=== PATIENT | male | born 1965 | race Caucasian/White ===

== ENCOUNTER → 2024-03-10 07:12 | Outpatient (REF) | payer BC, SELFPAY ==
[2024-03-10 08:52] LABS: Hemoglobin 13.2 g/dL (13.0-18.0); Mean Corp Hgb Conc. 33.8 g/dL (33.0-37.0); Mean Corpuscular Hgb 31.9 pg (27.0-31.0); Mean Corpuscular Volume 94.2 fL (80.0-94.0); Mean Platelet Volume 10.3 fL (7.4-10.4); Platelet Count 150 10^3/uL (130-400); Red Blood Cell Count 4.14 10^6/uL (4.70-6.10); Red Cell Dist. Width 12.2 % (11.5-14.5); White Blood Cell Count 4.1 10^3/uL (4.8-10.8)
[2024-03-10 10:01] LABS: PSA, Total - Screen 1.92 ng/ml (0.0-4.0); TSH Reflex To Free T4 2.65 uIU/ml (0.47-4.68)
[2024-03-10 11:02] LABS: ALT (SGPT) 26 U/L (0-50); AST (SGOT) 46 U/L (17-59); Albumin 4.4 g/dl (3.5-5.0); Alkaline Phosphatase 73 U/L (38-126); Blood Urea Nitrogen 22 mg/dl (9-20); Calcium 9.5 mg/dl (8.4-10.2); Carbon Dioxide 25 mmol/L (22-30); Chloride 105 mmol/L (98-107); Glucose 87 mg/dl (70-99); HDL Cholesterol 81 mg/dl; LDL Cholesterol, Calculated 67 mg/dl; Potassium 4.6 mmol/L (3.5-5.1); Sodium 143 mmol/L (135-145); Total Cholesterol 161 mg/dl (50-199); Triglyceride 68 mg/dl (10-149); Very Low Density Lipoprotein 13 mg/dl (0-30); eGFR 58.99
== END ==
LOC: REG 07:12
PROVIDERS: ATTENDING PHYSICIAN Physician Assistant Medical
DX: Z00.00 Encounter for general adult medical examination without abnormal findings (principal); Z12.5 Encounter for screening for malignant neoplasm of prostate; Z13.220 Encounter for screening for lipoid disorders
CPT/HCPCS: 36415; 80053; 80061; 84443; 85027; G0103

== ENCOUNTER 2025-06-09 07:34 | Emergency (ER) | payer BC, SELFPAY ==
--- NOTE | 2025-06-09 08:51 | ED.GENMED ---
History of Present Illness
General
Chief Complaint: Back Pain
Source: patient
Time Seen by Provider: 06/09/25 08:26
History of Present Illness
History of Present Illness:
59-year-old male presents to the emergency room complaining of low back pain on the right side. Pain radiates down to his leg. He does have some tingling in the leg which radiates out of the foot. No weakness. No bowel or bladder dysfunction.
Patient is able to ambulate though he does have significant pain. No fever or chills. No history of IV drug abuse. Patient states the pain began about a week ago. He has been taking Advil for the pain. The pain improved a couple days ago and he
thought he was out of the guzman but it came back today.
Past History
Past History
ED Past Medical History: None
Phy Exam
Physical Exam
Physical Exam:
General: Awake, Alert, Oriented X3. No acute distress, but does appear uncomfortable certain movements
Vitals: unremarkable
Head: Atraumatic
Eyes: Pupils equal, EOMI
Throat: Airway intact, no exudates
Neck: Trachea midline
Lungs: Clear and equal b/l
Heart: Regular rate, no murmurs
Abd: Soft, Nontender, No pulsatile mass
Back: No pain to palpation or percussion of the midline spine. No significant tenderness to palpation over the paraspinal musculature
Neuro: Muscle strength intact bilaterally, reflexes are quite brisk bilaterally, sensation intact
Skin: Warm, dry, no rash
Extremities: pulses equal b/l, no edema
Course
Orders/Labs/Results
Orders:
Orders
06/09/25 08:50
Cyclobenzaprine HCl [Flexeril] 10 mg PO NOW STA
Ketorolac [Toradol] 30 mg IM NOW STA
Prednisone [Deltasone] 50 mg PO NOW STA
Lumbar Spine Complete, 4 View [CR Lumbar Spine Comp Min 4 Vw*] Urgent
Comment:
Reason For Exam: right low back pain
06/09/25 11:30
Vital Signs- Treatment ONCE
Frequency: Once
Vital Signs
Initial and Last Documented VS:
Initial Vital Signs
Temp Pulse Resp Pulse Ox
98.0 F 54 16 98
06/09/25 07:52 06/09/25 07:52 06/09/25 07:52 06/09/25 07:52
Last Documented Vital Signs
Temp Pulse Resp BP Pulse Ox
98.0 F 56 16 103/57 97
06/09/25 07:52 06/09/25 11:44 06/09/25 11:44 06/09/25 11:44 06/09/25 11:44
MDM/Problems Addressed
Differential Diagnosis Includes:
Muscle strain, lumbar radiculopathy, degenerative disc disease
MDM/Problems Addressed:
Patient presents with low back pain worse than anything he has experienced before. No red flag symptoms. No focal weakness. Patient feels better after IV Toradol, oral steroids and Flexeril. Will discharge on a course of steroids as well as
Flexeril. Have him follow-up with Dr. Valadez.
*Radiology
Radiology exam reviewed: radiology read reviewed
*Pulse Oximetry
SaO2: 98
Oxygen Mode of Delivery: Room air
Patient hypoxic: no
*Critical Care Note
Total Time (30-74mins, 75-104mins- exclusive of procedures): Not Applicable
ED Attending Note
-
Portions of this chart may have been created with voice recognition software.� Occasional wrong word or��sound alike� substitutions may have occurred due to the inherent limitations of voice recognition software.
Discharge Plan
Departure
Patient Disposition: Home (Routine Discharge)
Date of Disposition: 06/09/25
Time of Disposition: 11:29
Patient with high blood pressure during this ER visit?: Yes
Condition: Good
Discharge Problem:
Low back pain
Instructions: Low Back Pain (DC), BLOOD PRESSURE
Prescriptions:
New
cyclobenzaprine 10 mg Tablet
10 mg PO TIDPRN PRN (Reason: muscle spasm) Qty: 15 0RF
prednisone 20 mg tablet
40 mg PO DAILY Qty: 8 0RF
Referrals:
Syd Valadez MD [Active, Anesthesiology]
Yohana Aldridge PA-C [Family Provider, Family Practice]
Stand Alone Forms: Return to Work
Interventions
Interventions:
*Risk Screen - Suicide Last Done: 06/09/25 07:52
*General Assessment Last Done: 06/09/25 07:52
*Neglect/Abuse Screening Last Done: 06/09/25 07:52
*ED COVID-19 Vaccine History Last Done: 06/09/25 07:52
*ED Influenza Vaccine History Last Done: 06/09/25 07:52
[facility] Fall Risk Assessment Tool Last Done: 06/09/25 11:47
*Nursing Disposition Last Done: 06/09/25 11:47
ED-Musculoskeletal Assessment Last Done: 06/09/25 09:16
Discharge Date and Time
Discharge Date/Time: 06/09/25 11:47
Print Language: CROATIAN
[2025-06-09] MEDS: FLEXERIL 10 MG PO (09:15)
[2025-06-09] MEDS: DELTASONE 50 MG PO (09:15)
[2025-06-09] MEDS: TORADOL 30 MG IM (09:16)
[2025-06-09 11:44] VITALS: BP 103/57
== END 2025-06-09 11:47 | disposition home or self-care (01) ==
LOC: EMR 07:34
PROVIDERS: EMERGENCY PHYSICIAN Emergency Medicine; FAMILY PHYSICIAN Physician Assistant Medical
DX: M54.50 Low back pain, unspecified (principal); R03.0 Elevated blood-pressure reading, without diagnosis of hypertension
CPT/HCPCS: 99284; 96372; 72110

== ENCOUNTER → 2025-06-22 16:58 | Outpatient (REF) | payer BC, SELFPAY | LOC: PAVMRI 16:58 | PROVIDERS: ATTENDING PHYSICIAN Anesthesiology Pain Medicine; FAMILY PHYSICIAN Physician Assistant Medical | DX: M54.50 Low back pain, unspecified (principal); M54.16 Radiculopathy, lumbar region | CPT/HCPCS: 72148 ==